=== PATIENT | male | born 1985 | race Caucasian/White ===

== ENCOUNTER 2018-04-15 20:29 | Emergency (ER) | payer SELFPAY ==
[~2018-04-15] VITALS: Ht 175.3 cm; Wt 118.8 kg
[2018-04-15 21:50] LABS: Basophils # (auto) 0 uL; Basophils % (auto) 0.3 % (0.0-2.0); Eosinophils # (auto) 0.1 uL; Eosinophils % (auto) 0.4 % (0.0-7.0); Hematocrit 49.6 % (41.0-53.0); Hemoglobin 16.6 g/dL (13.5-17.5); Lymphocytes # (auto) 1.6 uL; Lymphocytes % (auto) 12.5 % (10.0-50.0); Mean Corpuscular Hemoglobin 29.2 pg (28.0-32.0); Mean Corpuscular Hgb Conc. 33.5 g/dL (32.0-36.0); Mean Corpuscular Volume 87.1 fL (80.0-100.0); Monocytes # (auto) 1.1 uL; Monocytes % (auto) 8.4 % (0.0-12.0); Neutrophils # (auto) 10.2 uL; Neutrophils % (auto) 78.4 % (37.0-80.0); Nucleated Red Blood Cells % 0.1 %; Platelet Count (auto) 211 10^3/uL (140-450); Red Blood Cells 5.69 10^6/uL (4.5-5.90); Red Cell Distribution Width 13.1 % (11.8-14.3)
[2018-04-15 22:05] LABS: Albumin 3.8 g/dL (3.4-5.0); Amylase 46 U/L (25-115); Anion Gap 6 (5-15); Blood Urea Nitrogen 5 mg/dL (7-18); Carbon Dioxide 29 mmol/L (21-32); Chloride 101 mmol/L (98-107); Glucose 101 mg/dL (74-106); Lipase 120 U/L (73-393); Potassium 4.2 mmol/L (3.5-5.1); Sodium 136 mmol/L (136-145)
[2018-04-15 22:07] LABS: Alanine Aminotransferase 32 U/L (16-61); Aspartate Aminotransferase 18 U/L (15-37); BUN/Creatinine Ratio 5.2; GFR African American 116 mL/min; GFR Non-African American 96 mL/min
[2018-04-15 22:11] LABS: Alkaline Phosphatase 59 U/L (45-117); Bilirubin, Total 0.8 mg/dL (0.2-1.0); Total Protein 8.1 g/dL (6.4-8.2)
[2018-04-15 23:41] VITALS: BP 153/95
[2018-04-16] MEDS ORDERED: KETOROLAC TROMETH 60MG/2ML VIAL IM ONE (01:15)
[2018-04-16] MEDS ORDERED: ONDANSETRON ODT 4 MG TAB PO ONE (01:15)
[2018-04-16] MEDS ORDERED: FAMOTIDINE 20 MG TAB PO ONE (01:45)
== END 2018-04-16 02:03 | disposition home or self-care (01) ==
LOC: ER 20:29
DX: K44.9 Diaphragmatic hernia without obstruction or gangrene (principal)
CPT/HCPCS: 36415; 74176; 80053; 82150; 83690; 84484; 85025; 96372; 99285; J1885; Q0162

== ENCOUNTER 2018-05-12 18:17 | Emergency (ER) | payer SELFPAY ==
[~2018-05-12] VITALS: Ht 175.3 cm; Wt 117.9 kg
[2018-05-12 18:25] VITALS: BP 128/88
== END 2018-05-12 19:25 | disposition left against medical advice (07) ==
LOC: ER 18:17
DX: R10.9 Unspecified abdominal pain (principal); Z53.21 Procedure and treatment not carried out due to patient leaving prior to being seen by health care provider